=== PATIENT | female | born 1990 | race Caucasian/White ===

== ENCOUNTER 2017-02-27 15:12 | Emergency (ER) | payer OTHER, MEDICAID ==
[~2017-02-27] VITALS: Ht 160 cm; Wt 97.0 kg
[2017-02-27 15:13] VITALS: BP 126/80; PULSE 109; RESP 20; TEMP 98.5; O2SAT 100
[2017-02-27 17:08] LABS: BACTERIA, URINE OCC /hpf; BLOOD, URINE NEG (NEG); COMMENT (UR) CULT NOT INDICATED; CULTURE IF INDICATED CULT NOT INDICATED; GLUCOSE,URINE NEG (NEG); KETONE, URINE NEG (NEG); MUCUS URINE FEW /lpf (OCC); NITRITE,URINE NEG (NEG); SQUAMOUS EPITHELIAL CELL URINE 9 /hpf (0-5); URINE COLOR YELLOW (YELLW/STRAW)
--- NOTE | 2017-02-27 17:13 | PD ---
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 The patient states she had her ParaGard IUD placed at the [facility]. She notes minimal discomfort, denies any acute vaginal bleeding or discharge. She does have a history of slightly irregular cycles with the IUD in place. She is sexually active. She denies any nausea, vomiting, or significant upper abdominal pain. She denies associated fever, chills, or sweats. PFSH Past Medical History High Cholesterol: Yes Diminished Hearing: No GERD: Yes Influenza Vaccination: Yes ?: Not LMP: 02/19/2017 : 1 Para: 1 Past Surgical History Section: Yes Social History Alcohol Use: Yes (VERY RARELY) Tobacco Use: No Substance Use: No Allergies-Medications (Allergen,Severity, Reaction): Coded Allergies: No Known Allergies (Unverified , 07/25/16) Reported Meds & Prescriptions Reported Meds & Active Scripts Active No Active Prescriptions or Reported Medications Review of Systems Except as stated in HPI: all other systems reviewed are Neg General / Constitutional: No: Fever Respiratory: No: Shortness of Breath Gastrointestinal: No: Nausea, Vomiting, Abdominal Pain Genitourinary: Positive: Pelvic Pain, Other (as noted in the history of present illness), No: Urgency, Frequency, Dysuria Physical Exam Narrative GENERAL: Awake, alert, pleasant 26-year-old female who appears her stated age and is in no acute respiratory distress. SKIN: Focused skin assessment warm/dry. HEAD: Atraumatic. Normocephalic. EYES: No injection or drainage. ENT: No nasal bleeding or discharge. Mucous membranes pink and moist. NECK: Trachea midline. No JVD. GASTROINTESTINAL: Abdomen soft, non-tender, nondistended. No rebound tenderness. Genitourinary: Exam was performed in the presence of a female nurse. External examination reveals some white discharge at the introitus which had a string- like appearance. This was removed with a 4 x 4. Speculum examination was performed, IUD is in place with string within the cervical os. MUSCULOSKELETAL: No obvious deformities. No clubbing. No cyanosis. No edema. NEUROLOGICAL: Awake and alert. No obvious cranial nerve deficits. Motor grossly within normal limits. Normal speech. PSYCHIATRIC: Appropriate mood and affect; insight and judgment normal. Data Data Last Documented VS Vital Signs Date Time Temp Pulse Resp B/P Pulse Ox O2 Delivery O2 Flow Rate FiO2 02/27/17 15:13 98.5 109 20 126/80 100 Room Air Orders Urinalysis - C+S If Indicated (02/27/17 16:01) Ed Urine Pregnancytest Poc (02/27/17 16:01) Wet Prep Profile (02/27/17 17:28) Labs Laboratory Tests Test 02/27/17 02/27/17 16:10 17:25 Urine Color YELLOW Urine Turbidity HAZY Urine pH 6.0 Urine Specific [place] 1.020 Urine Protein TRACE mg/dL Urine Glucose (UA) NEG mg/dL Urine Ketones NEG mg/dL Urine Occult Blood NEG Urine Nitrite NEG Urine Bilirubin NEG Urine Urobilinogen LESS THAN 2.0 MG/DL Urine Leukocyte Esterase SMALL Urine RBC LESS THAN 1 /hpf Urine WBC 4 /hpf Urine Squamous Epithelial 9 /hpf Cells Urine Bacteria OCC /hpf Urine Mucus FEW /lpf Microscopic Urinalysis Comment CULT NOT INDICATED Clue Cells (Wet Prep) NONE SEEN Vaginal Trichomonas (Wet Prep) NONE SEEN Vaginal Yeast (Wet Prep) NONE SEEN MDM Medical Decision Making Medical Screen Exam Complete: Yes Emergency Medical Condition: Yes Medical Record Reviewed: Yes Interpretation(s) Laboratory Tests Test 02/27/17 02/27/17 16:10 17:25 Urine Color YELLOW Urine Turbidity HAZY Urine pH 6.0 Urine Specific [place] 1.020 Urine Protein TRACE mg/dL Urine Glucose (UA) NEG mg/dL Urine Ketones NEG mg/dL Urine Occult Blood NEG Urine Nitrite NEG Urine Bilirubin NEG Urine Urobilinogen LESS THAN 2.0 MG/DL Urine Leukocyte Esterase SMALL Urine RBC LESS THAN 1 /hpf Urine WBC 4 /hpf Urine Squamous Epithelial 9 /hpf Cells Urine Bacteria OCC /hpf Urine Mucus FEW /lpf Microscopic Urinalysis Comment CULT NOT INDICATED Clue Cells (Wet Prep) NONE SEEN Vaginal Trichomonas (Wet Prep) NONE SEEN Vaginal Yeast (Wet Prep) NONE SEEN Differential Diagnosis Differential diagnosis includes IUD displacement, cervicitis, vaginitis, PID, UTI, , ectopic , perforated uterus. Narrative Course A pelvic exam was performed in the presence of a female nurse. Bedside UA test was negative. UA was sent to lab. IUD was in place on physical examination, it was protruding from the cervical os. Wet prep was sent to lab. UA is unremarkable. Wet prep is negative. 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 Diagnosis Primary Impression: Vaginal discharge Patient Instructions: General Instructions Additional Instructions: Follow-up with the [facility] and/or your jewelry engraver. Ibuprofen and/or Tylenol as needed for pain. Return if symptoms worsen or progress. Scripts No Active Prescriptions or Reported Meds Disposition: DISCHARGE HOME Condition: Stable David Todd MD Feb 27, 2017 17:13
== END 2017-02-27 18:35 | disposition home or self-care (01) ==
LOC: NEPD 15:12
DX: N89.8 Other specified noninflammatory disorders of vagina (principal); T83.39XA Other mechanical complication of intrauterine contraceptive device, initial encounter
CPT/HCPCS: 81001; 84703; 87210; 99284

== ENCOUNTER 2017-07-28 15:50 | Emergency (ER) | payer OTHER, MEDICAID ==
[~2017-07-28] VITALS: Ht 152.4 cm; Wt 93.0 kg
[2017-07-28 15:55] VITALS: BP 136/77; PULSE 92; RESP 16; TEMP 98.2; O2SAT 99
[2017-07-28] MEDS ORDERED: LEVA750T9 PO (16:19)
[2017-07-28] MEDS ORDERED: ZITHTAB PO (16:19)
[2017-07-28] MEDS ORDERED: RESP: ALBUTEROL 2.5 MG/IPRATROPIUM 0.5 MG NEB (SCH) NEB ONE (17:00)
--- NOTE | 2017-07-28 17:14 | PD ---
HPI Chief Complaint: Musculoskeletal Complaint Time Seen by Provider: 16:58 Travel History International Travel<30 days: No Contact w/Intl Traveler<30days: No Traveled to known affect area: No History of Present Illness HPI 26-year-old female presents to emergency department with right lower lobe/rib pain for approximately 1 week. Patient states that she was initially diagnosed with bronchitis that developed into pneumonia. She has received multiple antibiotics and prednisone without significant relief. States she went to the urgent care 2 days ago with a prescribed antibiotics. She presents today because she is having right lower lobe pain that is sharp, constant and increases with movement. Denies fever or chills. Denies nausea, vomiting or diarrhea. Denies abdominal pain. Denies heart palpitations. PFSH Past Medical History High Cholesterol: Yes Diminished Hearing: No GERD: Yes Pneumonia: Yes Tetanus Vaccination: < 5 Years ?: Not LMP: NOW : 1 Para: 1 Past Surgical History Section: Yes Social History Alcohol Use: Yes (VERY RARELY) Tobacco Use: No Substance Use: No Allergies-Medications (Allergen,Severity, Reaction): Coded Allergies: No Known Allergies (Unverified Adverse Reaction, Unknown, 07/28/17) Reported Meds & Prescriptions Reported Meds & Active Scripts Active Ventolin Hfa 18 GM Inh (Albuterol Sulfate) 90 Mcg/Act Aer 2 Puff INH Q4-6H PRN Reported Levaquin (Levofloxacin) 750 Mg Tablet 750 Mg PO DAILY Zithromax Z-Leo (Azithromycin) 250 Mg Dspk 250 Mg PO DIRECTED 500 MG (2 tabs) day 1, then 1 tab days 2-5. Review of Systems Except as stated in HPI: all other systems reviewed are Neg Physical Exam Narrative GENERAL: Well-nourished, well-developed patient. SKIN: Focused skin assessment warm/dry. HEAD: Normocephalic. EYES: No scleral icterus. No injection or drainage. NECK: Supple, trachea midline. No JVD or lymphadenopathy. CARDIOVASCULAR: Regular rate and rhythm without murmurs, gallops, or rubs. RESPIRATORY: Breath sounds equal bilaterally. No accessory muscle use. GASTROINTESTINAL: Abdomen soft, non-tender, nondistended. Positive bowel sounds. No hepato-splenomegaly, or palpable masses. No guarding. No rebound tenderness MUSCULOSKELETAL: No cyanosis, or edema. TTP to right lower ribs, axillary region. No rash or ecchymosis. BACK: Nontender without obvious deformity. No CVA tenderness. Data Data Last Documented VS Vital Signs Date Time Temp Pulse Resp B/P (MAP) Pulse Ox O2 Delivery O2 Flow Rate FiO2 07/28/17 18:08 96 20 124/66 (85) 99 07/28/17 15:55 98.2 Orders Orders Chest, Pa & Lat (07/28/17 ) Complete Blood Count With Diff (07/28/17 16:56) D-Dimer (07/28/17 16:56) Comprehensive Metabolic Panel (07/28/17 16:56) Lipase (07/28/17 16:56) Urinalysis - C+S If Indicated (07/28/17 16:56) Electrocardiogram (07/28/17 16:56) Albuterol-Ipratropium Neb (Duoneb Neb) (07/28/17 17:00) Ed Discharge Order (07/28/17 17:59) [facility] Medical Decision Making Medical Screen Exam Complete: Yes Emergency Medical Condition: Yes Differential Diagnosis Costochondritis, bronchitis, pneumonia, cholecystitis Narrative Course 26-year-old female presents to emergency department with right lower lobe/rib pain for approximately 1 week. Patient states that she was initially diagnosed with bronchitis that developed into pneumonia. She has received multiple antibiotics and prednisone without significant relief. States she went to the urgent care 2 days ago with a prescribed antibiotics. She presents today because she is having right lower lobe pain that is sharp, constant and increases with movement. Denies fever or chills. Denies nausea, vomiting or diarrhea. Denies abdominal pain. Denies heart palpitations. She denies recent travel, fractures, surgeries, history of clots, blood disorders. She has an IUD in place. Denies leg pain. Vital signs stable. Physical exam findings consistent with costochondritis, pneumonia, bronchitis. Most likely diagnosis is of viral etiology. Because of her chest pain I wanted to rule out pulmonary embolism. Patient refused lab work because she does not like needles. She understands the risks versus benefit up to including . Mother was also part of her decision-making process and agreed to hold off on lab tests. I told them that they could change her mind at any time. EKG performed- sinus tachycardia with nonspecific T-wave abnormalities. No ST depressions or elevations. Last Impressions Chest X-Ray 07/28/17 0000 Signed Impressions: Service Date/Time: Friday, July 28, 2017 17:07 - CONCLUSION: No acute cardiopulmonary disease. MD Lavell Salamanca administered in the emergency department. Patient states that she does feel better. Pt will be discharged with an inhaler. Advised to continue medications that she was taking previously. I reminded them that they may return to the emergency department for the labs that I wanted to evaluate. Follow-up with her primary care physician within 2-3 days. Return to the emergency department for worsening or persistent symptoms. Diagnosis Primary Impression: Bronchitis Additional Impression: Costochondral chest pain Referrals: Primary Care Physician Additional Instructions: Use ice or heat for symptom relief. If symptoms persist or worsen, return to the emergency department. Follow up with your primary care physician within 2 days. As discussed use Tylenol or Motrin per package instructions for your pain. Scripts Albuterol 18 GM Inh (Ventolin Hfa 18 GM Inh) 90 Mcg/Act Aer 2 PUFF INH Q4-6H Y for SHORTNESS OF BREATH, #1 INHALER 0 Refills Prov: Maya Carpenter 07/28/17 Disposition: 01 DISCHARGE HOME Condition: Stable Maya Carpenter Jul 28, 2017 17:14
--- NOTE | 2017-07-28 17:49 | RADRPT ---
EXAM DATE/TIME: 07/28/2017 17:07 [facility] COMPARISON: CHEST PA & LAT, September 04, 2012, 10:00. INDICATIONS : Cough, short of breath, right side chest pains MEDICAL HISTORY : None. SURGICAL HISTORY : None. ENCOUNTER: Initial ACUITY: 3 weeks PAIN SCORE: 9/10 LOCATION: Bilateral chest FINDINGS: The lungs are clear without infiltrate, nodule, or mass. There is no appreciable pleural effusion fo r technique. Heart and mediastinum are unremarkable. CONCLUSION: No acute cardiopulmonary disease. Sharan Gama MD on July 28, 2017 at 17:46 Board Certified Radiologist. This report was verified electronically.
[2017-07-28] MEDS ORDERED: VENTAER INH (17:57)
[2017-07-28 18:08] VITALS: BP 124/66
--- NOTE | 2017-07-28 21:52 | EKG ---
Date Performed: 07/28/2017 Time Performed: 17:04:26 PTAGE: 26 years EKG: SINUS TACHYCARDIA BORDERLINE LEFT AXIS DEVIATION ABNORMAL RHYTHM ECG PREVIOUS TRACING : 09/04/2012 10.39 Compared to the previous tracing, rate is higher DOCTOR: Gage Parks Interpretating Date/Time 07/28/2017 21:50:58
== END 2017-07-28 18:16 | disposition home or self-care (01) ==
LOC: PHEFT 15:50
DX: J40 Bronchitis, not specified as acute or chronic (principal); R07.89 Other chest pain; R00.0 Tachycardia, unspecified; E78.00 Pure hypercholesterolemia, unspecified; K21.9 Gastro-esophageal reflux disease without esophagitis; R94.31 Abnormal electrocardiogram [ECG] [EKG]; Z79.899 Other long term (current) drug therapy
CPT/HCPCS: 71020; 93005; 94664